=== PATIENT | female | born 1965 | race Caucasian/White ===

== ENCOUNTER 2023-01-12 11:01 | Outpatient (CLI) | payer OTHER | END 2023-01-12 11:02 | disposition critical access hospital (66) | LOC: EMS 11:01 | DX: S09.90XA Unspecified injury of head, initial encounter (principal); W22.8XXA Striking against or struck by other objects, initial encounter; Y92.009 Unspecified place in unspecified non-institutional (private) residence as the place of occurrence of the external cause | CPT/HCPCS: A0425; A0429 ==

== ENCOUNTER 2023-01-12 11:30 | Emergency (ER) | payer OTHER ==
[2023-01-12] MEDS ORDERED: SODIUM CHLORIDE 0.9% 1,000 ML IV STA (12:12)
--- NOTE | 2023-01-12 12:12 | ED Physician Documentation ---
History of Present Illness - Stated complaint Stated Complaint: FOREHEAD LAC - Chief complaint Chief Complaint: Trauma Hd/Nk - History obtained from History obtained from: Patient - Additonal information Additional information: The patient comes to the emergency department chief complaint of head injury and bleeding wound. The patient was working on her house with another person who was operating a hand-held drill. The drill was engaged in the bit spinning when the person holding the drill accidentally let go of the drill and the battery pack whipped around and struck the patient in the head. Patient immediately had pulsatile bleeding out of the wound in her left anterior scalp. She did not lose consciousness. She denies any other injuries and no neurologic deficits. She states she has an as yet unidentified bleeding disorder. PD PAST MEDICAL HISTORY - Present Medications Home Medications: Ambulatory Orders Medication Instructions Recorded Confirmed No Known Home Medications 01/12/23 01/12/23 - Allergies Allergies/Adverse Reactions: Allergies Allergy/AdvReac Type Severity Reaction Status Date / Time ciprofloxacin [From Cipro] Allergy Unknown Verified 01/12/23 11:41 meperidine [From Demerol] Allergy Unknown Verified 01/12/23 11:41 NSAIDS (Non-Steroidal Allergy Unknown Verified 01/12/23 11:41 Anti-Inflamma PD ED PE NORMAL - Vitals Vital signs reviewed: Yes - General General: Alert and oriented X 3, No acute distress, Well developed/nourished - HEENT HEENT: PERRL, EOMI, Moist mucous membranes, Other (3 cm linear laceration to left anterolateral scalp with constant, brisk pulsatile bleeding shooting in a 2 foot arc from the wound. No foreign bodies. No scalp deformity.) - Neck Neck: Supple, no meningeal sign, No bony TTP - Respiratory Respiratory: No respiratory distress - Derm Derm: Normal color, Warm and dry, Other (Laceration as above.) - Extremities Extremities: No deformity - Neuro Neuro: Alert and oriented X 3 - Psych Psych: Normal mood, Normal affect Results - Vitals Vitals: Vital Signs - 24 hr 01/12/23 01/12/23 01/12/23 11:34 12:10 13:25 Temperature 36.0 C L Heart Rate 74 78 89 Respiratory 18 18 18 Rate Blood Pressure 117/73 107/56 L 107/75 O2 Saturation 93 98 100 01/12/23 13:47 Temperature Heart Rate 80 Respiratory 18 Rate Blood Pressure 135/74 H O2 Saturation 100 Oxygen O2 Source Room air - Labs Labs: Laboratory Tests 01/12/23 01/12/23 11:15 11:15 WBC 7.8 RBC 3.81 L Hgb 11.4 L Hct 35.0 L MCV 91.9 MCH 29.9 MCHC 32.6 RDW 13.3 Plt Count 394 MPV 9.4 Neut # (Auto) 5.7 Lymph # (Auto) 1.5 [place] # (Auto) 0.5 Eos # (Auto) 0.1 Baso # (Auto) 0.0 Absolute Nucleated RBC 0.00 Nucleated RBC % 0.0 PT 12.0 INR 1.1 - Rads (name of study) Head CT Relevant Findings:: Final report received, See rad report (Negative) Procedures - Laceration (location) Left anterolateral scalp Length in cm: 3 Wound type: Linear, Into subcut fat Neurovascular status: Other (Brisk, constant pulsatile bleeding from depth of wo und.) Anesthesia: Lidocaine 1% with epi Wound preparation: Hibiclens, Irrigated copiously NS, Wound explored, To the base Deep layer closure: Vicryl, size #-0 - enter number (4.0), # sutures - enter number (1), Other ([id number] suture placed around lacerated artery with good hemostasis.) Skin layer closure: [place]ing (6) Other: Patient tolerated well, No complications, Neurovascular intact, Dressing applied PD Medical Decision Making - ED course Complexity details: reviewed results, re-evaluated patient, considered differential, d/w patient ED course: Patient's wound and arterial bleed were repaired as above. She was worked up with CBC, INR, and head CT. She was given a liter of 0.9 normal saline. The patient remained stable throughout her stay in the ED. She reported a bad headache but otherwise, was without complaints. She did decline any medication here in the ED for her symptoms. She stated that she has Tylenol and tramadol at home which she will take for any discomforts. We have discussed wound care at home, the timeline for staple removal, and the fact that the suture is dissolvable. We have discussed home management of symptoms as well as usual i ndications for return. Departure - Departure Disposition: 01 Home, Self Care Clinical Impression: Laceration of scalp Qualifiers: Encounter type: initial encounter Qualified Code(s): S01.01XA - Laceration without foreign body of scalp, initial encounter Blunt head trauma Qualifiers: Encounter type: initial encounter Qualified Code(s): S09.8XXA - Other specified injuries of head, initial encounter Condition: Stable Instructions: ED Head Injury Closed, ED Laceration Scalp Stitch Or Stap Comments: The CT scan of your head looks good. Your blood work shows mild anemia with a hemoglobin of 11.4. This could be partially from your bleeding today, though there may have been some degree of anemia at baseline. You had a lacerated artery which was bleeding quite heavily from your scalp, and this was ligated with a figure of 8 suture, using absorbable suture. As such, this is suture will ultimately disintegrate on its own and does not require removal. However, you do have [address] to repair the rest your wound and those will need to be removed in 10 days. Please keep the wound clean and generally dry. You may allow soap or water to run over the wound but please do not rub, scrub, or immerse the wound until alaina are removed. This is to prevent infection. You may have fairly significant headaches for the next week or two. You may take [id number] medication or your tramadol to help with this. If becomes unbearable or you develop persistent vomiting, then you should return to the emergency department. Forms: PCP List Discharge Date/Time: 01/12/23 13:47
[2023-01-12 12:13] LABS: BASOPHILS % (AUTO) 0.4 %; EOSINOPHILS # (AUTO) 0.1 10^3/uL (0.0-0.7); EOSINOPHILS % (AUTO) 1.3 %; HGB - HEMOGLOBIN 11.4 g/dL (12.0-16.0); LYMPHOCYTES # (AUTO) 1.5 10^3/uL (1.5-3.5); LYMPHOCYTES % (AUTO) 19.1 %; MEAN CORPUSCULAR HEMOGLOBIN 29.9 pg (27.0-31.0); MEAN CORPUSCULAR HGB CONC 32.6 g/dL (32.0-36.0); MEAN CORPUSCULAR VOLUME 91.9 fL (81.0-99.0); MEAN PLATELET VOLUME 9.4 fL (7.9-10.8); MONOCYTES # (AUTO) 0.5 10^3/uL (0.0-1.0); MONOCYTES % (AUTO) 6.8 %; NEUTROPHILS # (AUTO) 5.7 10^3/uL (1.5-6.6); NEUTROPHILS % (AUTO) 72.1 %; PLT - PLATELET COUNT 394 10^3/uL (130-450); RED BLOOD COUNT 3.81 10^6/uL (4.20-5.40); RED CELL DISTRIBUTION WIDTH 13.3 % (12.0-15.0); WHITE BLOOD COUNT 7.8 x10^3/uL (4.8-10.8)
[2023-01-12 12:21] LABS: INR 1.1 (0.8-1.2)
--- NOTE | 2023-01-12 13:02 | CT Report ---
PROCEDURE: HEAD WO INDICATIONS: head injury, coagulopathy TECHNIQUE: Noncontrast 4.5 mm thick angled axial sections acquired from the foramen magnum to the vertex. For r adiation dose reduction, the following was used: automated exposure control, adjustment of mA and/or kV according to patient size. COMPARISON: None. FINDINGS: Image quality: Excellent. CSF spaces: Basal cisterns are patent. No extra-axial fluid collections. Ventricles are normal in size and shape. Brain: No midline shift. No intracranial masses or hemorrhage. So-white matter interface is norm al. Skull and face: Calvarium and visualized facial bones are intact, without suspicious lesions. Left frontal scalp hematoma/laceration. Sinuses: Visualized sinuses and mastoids are clear. IMPRESSION: 1. No acute intracranial process. 2. Left frontal scalp hematoma/laceration. Reviewed by: Hollie Ford MD on 01/12/2023 1:01 PM PDT Approved by: Hollie Ford MD on 01/12/2023 1:01 PM PDT Station ID: [id number]
[2023-01-12 13:34] VITALS: O2SAT 100
[2023-01-12 13:52] VITALS: BP 135/74
== END 2023-01-12 13:47 | disposition home or self-care (01) ==
LOC: ED 11:30
DX: S01.01XA Laceration without foreign body of scalp, initial encounter (principal); S09.8XXA Other specified injuries of head, initial encounter; W20.8XXA Other cause of strike by thrown, projected or falling object, initial encounter; Y92.009 Unspecified place in unspecified non-institutional (private) residence as the place of occurrence of the external cause
CPT/HCPCS: 12002; 36415; 85025; 85610; 99283; 99284

== ENCOUNTER 2023-10-17 15:45 | Emergency (ER) | payer OTHER ==
--- NOTE | 2023-10-17 16:03 | ED Physician Documentation ---
PD HPI CHEST PAIN - Stated complaint Stated Complaint: CHEST PX PD PAST MEDICAL HISTORY - Present Medications Home Medications: Ambulatory Orders Medication Instructions Recorded Confirmed No Known Home Medications 01/12/23 01/12/23 - Allergies Allergies/Adverse Reactions: Allergies Allergy/AdvReac Type Severity Reaction Status Date / Time ciprofloxacin [From Cipro] Allergy Unknown Verified 01/12/23 11:41 meperidine [From Demerol] Allergy Unknown Verified 01/12/23 11:41 NSAIDS (Non-Steroidal Allergy Unknown Verified 01/12/23 11:41 Anti-Inflamma - Social History Does the pt smoke?: No Smoking Status: Never smoker Does the pt have substance abuse?: No Results - Vitals Vitals: Oxygen O2 Source Room air
--- NOTE | 2023-10-17 16:22 | ED Physician Documentation ---
PD HPI CHEST PAIN - Stated complaint Stated Complaint: CHEST PX - Chief complaint Chief Complaint: Cardiac - History obtained from History obtained from: Patient - Additional information Additional information: 58-year-old woman who is [place]. She has a history of thyroiditis, bone and joint issues and ADD. She started clonidine for her ADD 3 weeks ago. Today she had 2 episodes of exertional chest pain, the first at 1015 this morning after running up 3 flights of stairs. It was a very sharp pain just to the left of midline, very focal and nonradiating. Not associated with shortness of breath, dizziness, nausea, or fatigue. She had a second episode that she ignored a few hours later. Now has only very mild pain. No history of DVT, PE, ACS. Was never smoker. No history of hypertension or hyperlipidemia. No recent travel, calf pain or edema. She declines aspirin due to bleeding side effects. PD PAST MEDICAL HISTORY - Past Medical History Past Medical History: Yes Neuro: Head injury Psych: ADD/ADHD Musculoskeletal: Chronic back pain - Past Surgical History Past Surgical History: Yes Ortho: Knee replacement - Present Medications Home Medications: Ambulatory Orders Medication Instructions Recorded Confirmed cloNIDine HCL [Clonidine HCl] 0.2 mg PO DAILY 10/17/23 10/17/23 - Allergies Allergies/Adverse Reactions: Allergies Allergy/AdvReac Type Severity Reaction Status Date / Time ciprofloxacin [From Cipro] Allergy Unknown Verified 10/17/23 16:09 meperidine [From Demerol] Allergy Unknown Verified 10/17/23 16:09 NSAIDS (Non-Steroidal Allergy Unknown Verified 10/17/23 16:09 Anti-Inflamma - Social History Does the pt smoke?: No Smoking Status: Never smoker Does the pt drink ETOH?: No Does the pt have substance abuse?: No - Immunizations Immunizations are current?: Yes - POLST Patient has POLST: No PD ED PE NORMAL - Vitals Vital signs reviewed: Yes - General General: Alert and oriented X 3, No acute distress - Neck Neck: Supple, no meningeal sign - Cardiac Cardiac: RRR, No murmur - Respiratory Respiratory: No respiratory distress, Clear bilaterally - Abdomen Abdomen: Non tender - Extremities Extremities: No edema, Other - Neuro Neuro: Alert and oriented X 3 Results - Vitals Vitals: Vital Signs - 24 hr 10/17/23 10/17/23 10/17/23 15:59 16:13 16:57 Temperature 36.6 C Heart Rate 66 70 65 Respiratory 14 22 12 Rate Blood Pressure 132/85 H 125/74 110/69 O2 Saturation 100 100 98 Oxygen O2 Source Room air - EKG (time done) 1554 EKG releavant findings:: EKG personally interpreted by author of this note. Relevant findings are: Rate: Rate (enter#) (69) Rhythm: NSR [place]: Normal Intervals: Normal [place] QRS: Normal Ischemia: Non specific changes Computer interpretation: Disagree with computer (Flat T waves V1 and V2 without obvious Q waves. No ST elevation or depression.) - Labs Labs: Laboratory Tests 10/17/23 10/17/23 16:00 16:00 WBC 6.8 RBC 4.65 Hgb 13.6 Hct 41.7 MCV 89.7 MCH 29.2 MCHC 32.6 RDW 13.2 Plt Count 340 MPV 9.4 Neut # (Auto) 3.6 Lymph # (Auto) 2.6 [place] # (Auto) 0.5 Eos # (Auto) 0.1 Baso # (Auto) 0.0 Absolute Nucleated RBC 0.00 Nucleated RBC % 0.0 Sodium 138 Potassium 3.5 Chloride 104 Carbon Dioxide 28 Anion Gap 6.0 BUN 18 Creatinine 1.0 Estimated GFR (MDRD) 57 L Glucose 103 Calcium 9.9 Total Bilirubin 0.7 AST 19 ALT 10 Alkaline Phosphatase 67 Troponin I High Sens 2.5 Total Protein 7.1 Albumin 4.4 Globulin 2.7 Albumin/Globulin Ratio 1.6 Lipase 35 - Rads (name of study) Single view chest x-ray is unremarkable Relevant Findings:: Final report received, EMP independent interpretation of test PD Medical Decision Making - ED course ED course: She presents with concern for angina. Heart score is 2 with negative troponin, CBC, CMP, and chest x-ray. Close follow-up and return precautions were advised. Departure - Departure Disposition: 01 Home, Self Care Clinical Impression: Chest pain Qualifiers: Chest pain type: chest pain on breathing Qualified Code(s): R07.1 - Chest pain on breathing; R07.81 - Pleurodynia Condition: Good Record reviewed to determine appropriate education?: Yes Instructions: ED Chest Pain Atypical Unkn Cause Comments: Your troponin level was normal and otherwise blood work was all fine as was the chest x-ray. Follow-up with your PCM with consideration for referral for stress testing. Return if you have more longer lasting pain. Reasonable to take an aspirin, 81 mg a day until the completion of the stress test assuming the stress test is negative. Forms: PCP List
[2023-10-17 16:25] LABS: BASOPHILS % (AUTO) 0.6 %; EOSINOPHILS # (AUTO) 0.1 10^3/uL (0.0-0.7); EOSINOPHILS % (AUTO) 2.1 %; HCT - HEMATOCRIT 41.7 % (37.0-47.0); HGB - HEMOGLOBIN 13.6 g/dL (12.0-16.0); LYMPHOCYTES # (AUTO) 2.6 10^3/uL (1.5-3.5); LYMPHOCYTES % (AUTO) 37.6 %; MEAN CORPUSCULAR HEMOGLOBIN 29.2 pg (27.0-31.0); MEAN CORPUSCULAR HGB CONC 32.6 g/dL (32.0-36.0); MEAN CORPUSCULAR VOLUME 89.7 fL (81.0-99.0); MEAN PLATELET VOLUME 9.4 fL (7.9-10.8); MONOCYTES # (AUTO) 0.5 10^3/uL (0.0-1.0); MONOCYTES % (AUTO) 6.8 %; NEUTROPHILS # (AUTO) 3.6 10^3/uL (1.5-6.6); NEUTROPHILS % (AUTO) 52.8 %; PLT - PLATELET COUNT 340 10^3/uL (130-450); RED BLOOD COUNT 4.65 10^6/uL (4.20-5.40); RED CELL DISTRIBUTION WIDTH 13.2 % (12.0-15.0); WHITE BLOOD COUNT 6.8 x10^3/uL (4.8-10.8)
[2023-10-17 16:41] LABS: ALBUMIN 4.4 g/dL (3.2-5.5); ALBUMIN/GLOBULIN RATIO 1.6 (1.0-2.2); BILIRUBIN,TOTAL 0.7 mg/dL (0.2-1.0); CALCIUM 9.9 mg/dL (8.5-10.3); POTASSIUM 3.5 mmol/L (3.5-4.5); TOTAL PROTEIN 7.1 g/dL (6.4-8.9); TROPONIN I HIGH SENSITIVITY 2.5 ng/L (2.3-14.8)
--- NOTE | 2023-10-17 16:47 | XRAY Report ---
PROCEDURE: Chest 1V INDICATIONS: Chest Pain TECHNIQUE: One view of the chest was acquired. COMPARISON: None. FINDINGS: Surgical changes and devices: None. Lungs and pleura: No pleural effusions or pneumothorax. Lungs are clear. Mediastinum: Mediastinal contours appear normal. Heart size is normal. Bones and chest wall: No suspicious bony lesions. Overlying soft tissues appear unremarkable. IMPRESSION: No acute cardiopulmonary process. Reviewed by: Hollie Ford MD on 10/17/2023 4:45 PM PDT Approved by: Hollie Ford MD on 10/17/2023 4:45 PM PDT Station ID: [id number]
[2023-10-17 17:30] VITALS: BP 107/79; O2SAT 100
== END 2023-10-17 17:22 | disposition home or self-care (01) ==
LOC: ED 15:45
DX: R07.81 Pleurodynia (principal); R07.1 Chest pain on breathing
CPT/HCPCS: 36415; 80053; 83690; 84484; 85025; 93005; 99283; 99284